=== PATIENT | female | born 1980 | race Caucasian/White ===

== ENCOUNTER 2018-01-15 09:41 | Emergency (ER) | payer MEDICAID ==
[~2018-01-15] VITALS: Ht 165.1 cm; Wt 108.0 kg
[~2018-01-15 09:41] MED LIST: ALPRAZOLAM0.25 MG PO; COLACE100 MG PO; FLUOXETINE20 M2 PO; HYDROCODONE BIT1 TA9 PO; NAPROXEN500 MG PO; NOR10T PO; ROBAXIN-750750 MG PO; TRAZODONE50 M1 PO
[2018-01-15 10:09] VITALS: BP 148/55; Ht 165.1 cm; Wt 108.0 kg
== END 2018-01-15 11:40 | disposition home or self-care (01) ==
LOC: ED 09:41
DX: R21 Rash and other nonspecific skin eruption (principal); G43.909 Migraine, unspecified, not intractable, without status migrainosus
CPT/HCPCS: J7512

== ENCOUNTER 2019-03-07 08:29 | Emergency (ER) | payer MEDICAID ==
[~2019-03-07] VITALS: Ht 165.1 cm; Wt 109.5 kg
[2019-03-07 08:34] VITALS: Ht 165.1 cm; Wt 109.5 kg
[2019-03-07 09:42] VITALS: BP 126/65
== END 2019-03-07 09:42 | disposition home or self-care (01) ==
LOC: ED 08:29
DX: G43.909 Migraine, unspecified, not intractable, without status migrainosus (principal); J06.9 Acute upper respiratory infection, unspecified; Z98.51 Tubal ligation status
CPT/HCPCS: J0780; J1885